=== PATIENT | male | born 1980 | race Caucasian/White ===

== ENCOUNTER → 2017-01-13 | Outpatient (CLI) | payer OTHER ==
[2017-01-13 15:50] LABS: CH 29.5; CHCM 35.4; HCT 43.6 % (39.0-53.0); HDW 2.89; HGB 14.8 gm/dL (13.0-17.5); MCH 28.4 pg (25.0-35.0); MCV 83.6 fL (80.0-100.0); Mean Platelet Volume 7.1; RBC 5.21 m/uL (4.30-5.90); RDW 14.1 % (11.5-15.5); WBC 7.3 k/uL (3.8-10.6)
[2017-01-13 15:59] LABS: ALT 60 U/L (21-72); AST 44 U/L (17-59); Alkaline Phosphatase 101 U/L (38-126); Anion Gap 8 mmol/L; Blood Urea Nitrogen 19 mg/dL (9-20); Calcium 9.3 mg/dL (8.4-10.2); Carbon Dioxide 30 mmol/L (22-30); Chloride 102 mmol/L (98-107); Glucose 106 mg/dL (74-99); Non-African American GFR(MDRD) >60 (>60 ml/min/1.73 sqM); Potassium 4.5 mmol/L (3.5-5.1); Sodium 140 mmol/L (137-145); Total Bilirubin 0.6 mg/dL (0.2-1.3); Total Protein 7.1 g/dL (6.3-8.2)
[2017-01-16 14:50] LABS: HCV Qualitative Result DETECTED (Not detected)
== END | disposition home or self-care (01) ==
LOC: LABWHC1 15:03
DX: B18.2 Chronic viral hepatitis C (principal)
CPT/HCPCS: 36415; 80053; 82105; 85027; 87522; 87902

== ENCOUNTER → 2017-03-13 | Outpatient (CLI) | payer OTHER ==
[2017-03-17 09:15] LABS: Mis test requested (Blood) Hep C RNA Geno
== END | disposition home or self-care (01) ==
LOC: LABWHC1 11:15
PROVIDERS: ATTEND Physician Assistant
DX: B18.2 Chronic viral hepatitis C (principal)
CPT/HCPCS: 36415; 87902

== ENCOUNTER → 2017-08-15 | Outpatient (CLI) | payer OTHER ==
[2017-08-15 16:51] LABS: ALT 40 U/L (21-72); AST 31 U/L (17-59); Albumin 4.1 g/dL (3.5-5.0); Alkaline Phosphatase 84 U/L (38-126); Anion Gap 12 mmol/L; Blood Urea Nitrogen 17 mg/dL (9-20); Calcium 9.3 mg/dL (8.4-10.2); Carbon Dioxide 29 mmol/L (22-30); Chloride 101 mmol/L (98-107); Glucose 103 mg/dL (74-99); Potassium 4.3 mmol/L (3.5-5.1); Sodium 142 mmol/L (137-145); Total Bilirubin 0.4 mg/dL (0.2-1.3)
[2017-08-16 16:03] LABS: Hepatits C Virus RNA DETECTED (Not detected); LOG HCV IU/mL 6.58 (<1.08)
== END | disposition home or self-care (01) ==
LOC: LABWHC1 16:11
DX: B18.2 Chronic viral hepatitis C (principal)
CPT/HCPCS: 36415; 80053; 87522

== ENCOUNTER → 2017-09-18 | Outpatient (CLI) | payer OTHER ==
[2017-09-18 12:11] LABS: Basophils # (A) 0.1 k/uL (0-0.2); Basophils % (A) 1 %; Eosinophils # (A) 0.2 k/uL (0-0.7); Eosinophils % (A) 4 %; HCT 42.1 % (39.0-53.0); HGB 14.6 gm/dL (13.0-17.5); Lymphocytes # (A) 1.5 k/uL (1.0-4.8); Lymphocytes % (A) 22 %; MCH 28.5 pg (25.0-35.0); MCHC 34.7 g/dL (31.0-37.0); MCV 82.2 fL (80.0-100.0); Mean Platelet Volume 6.7; Monocytes # (A) 0.3 k/uL (0-1.0); Monocytes % (A) 5 %; Neutrophils # (A) 4.6 k/uL (1.3-7.7); Neutrophils % (A) 68 %; Platelet Count 259 k/uL (150-450); RBC 5.12 m/uL (4.30-5.90); RDW 12.9 % (11.5-15.5); WBC 6.7 k/uL (3.8-10.6)
[2017-09-18 12:24] LABS: Prothrombin Time 10.3 sec (9.0-12.0)
== END ==
LOC: LABWHC1 11:44
PROVIDERS: ATTEND Physician Assistant
DX: B18.2 Chronic viral hepatitis C (principal)
CPT/HCPCS: 36415; 85025; 85610

== ENCOUNTER → 2017-09-26 | Outpatient (CLI) | payer OTHER | END | disposition home or self-care (01) | LOC: LABWHC1 12:37 | PROVIDERS: ATTEND Otolaryngology | DX: K11.5 Sialolithiasis (principal) | CPT/HCPCS: 36415; 82306; 82330 ==

== ENCOUNTER → 2017-09-27 | Outpatient (CLI) | payer OTHER ==
--- NOTE | 2017-09-27 09:59 | CT ---
EXAMINATION TYPE: CT soft tissue neck w con DATE OF EXAM: 09/27/2017 COMPARISON: NONE HISTORY: Patient complains of left side mandibular swelling after eating sweets. CT DLP: 802 mGycm CONTRAST: CT scan of the neck is performed with IV Contrast, patient injected with 100 mL of Isovue 300. Contrast enhanced CT of the neck was performed from the skull base through the lung apices. AIRWAY: The supraglottic, glottic, and subglottic portions of the airway appear patent and free of mass. SALIVARY GLANDS: There is fullness of the left submandibular gland relative to its right-sided counte rpart measuring 2.3 x 2.1 cm versus 2.1 x 1.7 cm. No definite intraglandular mass or surrounding infl ammatory changes appreciated. There is calculus measuring 11 x 5 mm at the floor of the mouth in the expected location of the left submandibular duct opening. No additional calculi seen with certainty. Parotid glands are symmetric and unremarkable. THYROID GLAND: No nodules or masses seen. LYMPH NODES: No adenopathy seen greater than 1cm. LUNG APICES: No nodule or mass is seen. OTHER: Vascular structures are patent. No significant degenerative change of the cervical spine. N o abscess seen. Mucosal thickening right maxillary sinus. IMPRESSION: 1. Fullness of the left submandibular gland with ductal calculus noted near the opening of [place]'s duct on the left at the floor of the mouth.
== END | disposition home or self-care (01) ==
LOC: RADCTMAIN 09:06
PROVIDERS: ATTEND Otolaryngology
DX: K11.5 Sialolithiasis (principal)
CPT/HCPCS: 70491; Q9967

== ENCOUNTER → 2018-02-23 | Outpatient (CLI) | payer OTHER ==
[2018-02-23 15:23] LABS: Basophils # (A) 0.1 k/uL (0-0.2); Basophils % (A) 1 %; Eosinophils # (A) 0.3 k/uL (0-0.7); Eosinophils % (A) 5 %; HCT 42.3 % (39.0-53.0); HGB 14.1 gm/dL (13.0-17.5); Lymphocytes # (A) 1.8 k/uL (1.0-4.8); Lymphocytes % (A) 27 %; MCH 27.9 pg (25.0-35.0); MCHC 33.3 g/dL (31.0-37.0); MCV 83.8 fL (80.0-100.0); Mean Platelet Volume 6.5; Monocytes # (A) 0.3 k/uL (0-1.0); Monocytes % (A) 4 %; Neutrophils % (A) 62 %; Platelet Count 275 k/uL (150-450); RBC 5.05 m/uL (4.30-5.90); RDW 13.2 % (11.5-15.5); WBC 6.5 k/uL (3.8-10.6)
[2018-02-23 21:31] LABS: Albumin 4.3 g/dL (3.80-4.90); Albumin/Globulin Ratio 1.95 (1.20-2.10); Bilirubin, Conjugated 0.2 mg/dL (0.20-0.40); Bilirubin,Unconjugated 0.4 mg/dL; Globulin 2.2 g/dL (2.1-3.7); Total Bilirubin 0.6 mg/dL (0.3-1.2); Total Protein 6.5 g/dL (6.2-8.2)
[2018-02-26 14:34] LABS: Hepatits C Virus RNA DETECTED (Not detected); LOG HCV IU/mL 6.69 (<1.08)
== END ==
LOC: LABWHC1 14:23
PROVIDERS: ATTEND Physician Assistant
DX: B18.2 Chronic viral hepatitis C (principal)
CPT/HCPCS: 36415; 80076; 82172; 82247; 82977; 83010; 83883; 84460; 85025; 85610; 87522

== ENCOUNTER → 2018-06-14 | Outpatient (CLI) | payer MEDICAID ==
[2018-06-14 12:59] LABS: Basophils # (A) 0.1 k/uL (0-0.2); Basophils % (A) 1 %; Eosinophils # (A) 0.3 k/uL (0-0.7); Eosinophils % (A) 5 %; HCT 41.4 % (39.0-53.0); HGB 13.8 gm/dL (13.0-17.5); Lymphocytes # (A) 1.6 k/uL (1.0-4.8); Lymphocytes % (A) 26 %; MCH 28.3 pg (25.0-35.0); MCHC 33.4 g/dL (31.0-37.0); MCV 84.7 fL (80.0-100.0); Mean Platelet Volume 6.2; Monocytes # (A) 0.3 k/uL (0-1.0); Monocytes % (A) 5 %; Neutrophils # (A) 3.8 k/uL (1.3-7.7); Neutrophils % (A) 61 %; Platelet Count 246 k/uL (150-450); RBC 4.88 m/uL (4.30-5.90); RDW 13.4 % (11.5-15.5); WBC 6.2 k/uL (3.8-10.6)
[2018-06-14 13:03] LABS: Prothrombin Time 10.3 sec (9.0-12.0)
[2018-06-14 19:36] LABS: Albumin/Globulin Ratio 1.74 (1.60-3.17); Bilirubin, Conjugated 0.2 mg/dL (0.20-0.40); Bilirubin,Unconjugated 0.2 mg/dL; Globulin 2.3 g/dL (1.6-3.3); Total Bilirubin 0.4 mg/dL (0.2-1.2); Total Protein 6.3 g/dL (6.2-8.2)
[2018-06-15 14:36] LABS: Hepatits C Virus RNA DETECTED (Not detected); LOG HCV IU/mL 6.51 (<1.08)
== END | disposition home or self-care (01) ==
LOC: LABWHC1 11:03
PROVIDERS: ATTEND Physician Assistant
DX: B18.2 Chronic viral hepatitis C (principal)
CPT/HCPCS: 36415; 80076; 85025; 85610; 87522

== ENCOUNTER 2018-06-20 15:41 | Inpatient (IN) | payer MEDICAID ==
--- NOTE | 2018-06-20 16:04 | ED ---
General Adult HPI <Masood Car - Last Filed: 06/20/18 18:41> - General Source: patient, RN notes reviewed Mode of arrival: ambulatory Limitations: no limitations <Isabel Fregoso - Last Filed: 06/20/18 19:19> - General Chief complaint: Recheck/Abnormal Lab/Rx Stated complaint: Poss Cellulitis on Abdomen - History of Present Illness Initial comments: Patient is a 37-year-old male with history of recurrent cellulitis and hepatitis C who presents to the emergency department with complaint of cellulitis on his abdomen since yesterday. He states he has had a 5 episodes over the past couple months. He states he has been taking Bactrim for the past couple weeks. Patient denies any recent fever, chills, shortness of breath, chest pain, back pain, nausea or vomiting, numbness or tingling, headaches or visual changes, or any other complaints. (Isabel Fregoso) - Related Data Home Medications Medication Instructions Recorded Confirmed Buprenorphine HCl/Naloxone HCl 1 mg SL TID 05/22/15 01/16/16 [Suboxone 8 mg-2 mg Sl Film] Lisinopril [Zestril] 10 mg PO DAILY 01/16/16 01/16/16 Previous Rx's Medication Instructions Recorded Cephalexin [Keflex] 500 mg PO Q6HR #28 cap 01/16/16 Sulfamethox-Tmp 800-160Mg [Bactrim 2 each PO Q12HR #28 tab 01/16/16 Ds] Allergies Allergy/AdvReac Type Severity Reaction Status Date / Time No Known Allergies Allergy Verified 06/20/18 15:42 Review of Systems ROS Other: All systems not noted in ROS Statement are negative. <Masood Car - Last Filed: 06/20/18 18:41> ROS Other: All systems not noted in ROS Statement are negative. <Isaebl Fregoso - Last Filed: 06/20/18 19:19> ROS Statement: Those systems with pertinent positive or pertinent negative responses have been documented in the HPI. Past Medical History Additional Past Medical History / Comment(s): hep c, History of Any Multi-Drug Resistant Organisms: None Reported Past Surgical History: Adenoidectomy, Hernia Repair, Tonsillectomy Past Psychological History: No Psychological Hx Reported Smoking Status: Current some day smoker Past Alcohol Use History: None Reported Past Drug Use History: None Reported, Heroin, Opiates <FregosoIsabel E - Last Filed: 06/20/18 19:19> General Exam Limitations: no limitations General appearance: alert, in no apparent distress Head exam: Present: atraumatic, normocephalic Eye exam: Present: normal appearance Respiratory exam: Present: normal lung sounds bilaterally. Absent: wheezes, rales, rhonchi Cardiovascular Exam: Present: regular rate, normal rhythm GI/Abdominal exam: Present: other (Erythematous patch over right side of abdomen.) Neurological exam: Present: alert, oriented X3 <Isabel Fregoso E - Last Filed: 06/20/18 19:19> Vital Signs 06/20/18 06/20/18 15:42 17:33 Temperature 98.7 F Pulse Rate 98 79 Respiratory 18 18 Rate Blood Pressure 135/88 132/80 O2 Sat by Pulse 97 97 Oximetry Medical Decision Making - Lab Data Result diagrams: 06/20/18 16:12 06/20/18 16:12 <Masood Car - Last Filed: 06/20/18 18:41> - Lab Data Result diagrams: 06/20/18 16:12 06/20/18 16:12 <Isabel Fregoso E - Last Filed: 06/20/18 19:19> - Medical Decision Making Medical decision making; a 37-year-old male here with 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 Patient reports that he has on-again off-again needed take Bactrim for 2-3 weeks at a time. This time is not responding. Denies any fever or chills. But his usual antibiotic therapy is not working. The patient's past medical problems as noted on the chart include having had problems with opiates in the past denies having had any such issues in the past 10 years. Has a history of hepatitis C and states he was recently told he'll be starting treatment for hep C. While in emergency room the patient was examined. Evidence of a tender red hot skin typical of cellulitis noted in the lower half of the port wine stain. I discussed the case with his attending Dr. Mcgovern. Patient be admitted to his service started on vancomycin. Dr. Car ( Masood Car) - Lab Data Lab Results 06/20/18 06/20/1806/20/19 Range/Units 16:12 16:12 16:12 WBC 9.1 (3.8-10.6) k/uL RBC 5.00 (4.30-5.90) m/uL Hgb 14.5 (13.0-17.5) gm/dL Hct 41.9 (39.0-53.0) % MCV 83.6 (80.0-100.0) fL MCH 28.9 (25.0-35.0) pg MCHC 34.6 (31.0-37.0) g/dL RDW 13.5 (11.5-15.5) % Plt Count 300 (150-450) k/uL Neutrophils % 70 % Lymphocytes % 21 % Monocytes % 5 % Eosinophils % 3 % Basophils % 1 % Neutrophils # 6.3 (1.3-7.7) k/uL Lymphocytes # 1.9 (1.0-4.8) k/uL Monocytes # 0.4 (0-1.0) k/uL Eosinophils # 0.3 (0-0.7) k/uL Basophils # 0.1 (0-0.2) k/uL Sodium 140 (137-145) mmol/L Potassium 4.0 (3.5-5.1) mmol/L Chloride 103 (98-107) mmol/L Carbon Dioxide 27 (22-30) mmol/L Anion Gap 10 mmol/L BUN 13 (9-20) mg/dL Creatinine 0.80 (0.66-1.25) mg/dL Est GFR (CKD-EPI)AfAm >90 (>60 ml/min/1.73 sqM) Est GFR (CKD-EPI)NonAf >90 (>60 ml/min/1.73 sqM) Glucose 94 (74-99) mg/dL Plasma Lactic Acid [place] 1.4 (0.7-2.0) mmol/L Calcium 9.1 (8.4-10.2) mg/dL Total Bilirubin 0.7 (0.2-1.3) mg/dL AST 48 (17-59) U/L ALT 79 H (21-72) U/L Alkaline Phosphatase 105 (38-126) U/L Total Protein 7.4 (6.3-8.2) g/dL Albumin 4.2 (3.5-5.0) g/dL Disposition <Masood Car - Last Filed: 06/20/18 18:41> Is patient prescribed a controlled substance at d/c from ED?: No <Isabel Fregoso - Last Filed: 06/20/18 19:19> Clinical Impression: Cellulitis Disposition: ADMITTED IP TO THIS HOSP Referrals: Darian Mcgovern DO [Primary Care Provider] - 1-2 days
[2018-06-20] MEDS: SODIUM CHLORIDE 0.9% 1,000 ML IV SCH (16:27)
[2018-06-20 16:30] LABS: Basophils # (A) 0.1 k/uL (0-0.2); Basophils % (A) 1 %; Eosinophils # (A) 0.3 k/uL (0-0.7); Eosinophils % (A) 3 %; HCT 41.9 % (39.0-53.0); HGB 14.5 gm/dL (13.0-17.5); Lymphocytes # (A) 1.9 k/uL (1.0-4.8); Lymphocytes % (A) 21 %; MCH 28.9 pg (25.0-35.0); MCHC 34.6 g/dL (31.0-37.0); MCV 83.6 fL (80.0-100.0); Mean Platelet Volume 5.8; Monocytes # (A) 0.4 k/uL (0-1.0); Monocytes % (A) 5 %; Neutrophils # (A) 6.3 k/uL (1.3-7.7); Neutrophils % (A) 70 %; Platelet Count 300 k/uL (150-450); RDW 13.5 % (11.5-15.5); WBC 9.1 k/uL (3.8-10.6)
[2018-06-20 16:46] LABS: AST 48 U/L (17-59); Albumin 4.2 g/dL (3.5-5.0); Alkaline Phosphatase 105 U/L (38-126); Anion Gap 10 mmol/L; Blood Urea Nitrogen 13 mg/dL (9-20); Calcium 9.1 mg/dL (8.4-10.2); Carbon Dioxide 27 mmol/L (22-30); Chloride 103 mmol/L (98-107); Glucose 94 mg/dL (74-99); Sodium 140 mmol/L (137-145); Total Bilirubin 0.7 mg/dL (0.2-1.3); Total Protein 7.4 g/dL (6.3-8.2)
[2018-06-20 16:55] LABS: ALT 79 U/L (21-72)
[2018-06-20] MEDS ORDERED: VANCOMYCIN IV PER PHARMACY 1 EACH MISC MISCELLANE PRN (18:27)
[2018-06-20] MEDS ORDERED: VANCOMYCIN 2,000 MG in SODIUM CHLORIDE 0.9% 500 ML 500 ML IVPB STA (18:42)
[2018-06-20] MEDS ORDERED: NALOXONE 0.4 MG/ML 1 ML VIAL IV PRN (19:19)
[2018-06-20 19:49] LABS: Appearance,Urine Clear (Clear); Bilirubin,Urine Negative (Negative); Blood,Urine Negative (Negative); Color,Urine Yellow; Glucose,Urine (UA) Negative (Negative); Ketones,Urine Negative (Negative); Leukocyte Esterase,Urine Negative (Negative); Nitrite,Urine Negative (Negative); Protein,Urine Negative (Negative); Specific Gravity,Urine 1.021 (1.001-1.035); Urobilinogen,Urine <2.0 mg/dL (<2.0)
[2018-06-20] MEDS ORDERED: FLUoxetine HCL 10 MG CAP PO SCH (21:30)
[2018-06-20] MEDS: FLUoxetine HCL 20 MG CAP PO SCH (22:09)
[2018-06-20] MEDS: NICOTINE 21MG/24HR PATCH TRANSDERM SCH (22:09)
[2018-06-20] MEDS: LOSARTAN 50 MG TAB PO SCH (22:37)
[2018-06-21] MEDS: VANCOMYCIN 2,000 MG in SODIUM CHLORIDE 0.9% 500 ML 500 ML IVPB SCH ×3 (05:56→21:16)
[2018-06-21] MEDS: SODIUM CHLORIDE 0.9% 1,000 ML IV SCH ×3 (05:56→21:17)
[2018-06-21] MEDS ORDERED: LOSARTAN 50 MG TAB PO SCH (09:00)
[2018-06-21 09:20] LABS: Basophils % (A) 1 %; Eosinophils # (A) 0.4 k/uL (0-0.7); Eosinophils % (A) 5 %; HGB 12.7 gm/dL (13.0-17.5); Lymphocytes # (A) 1.6 k/uL (1.0-4.8); Lymphocytes % (A) 22 %; MCH 28.1 pg (25.0-35.0); MCHC 32.5 g/dL (31.0-37.0); MCV 86.6 fL (80.0-100.0); Mean Platelet Volume 6.2; Monocytes # (A) 0.3 k/uL (0-1.0); Monocytes % (A) 5 %; Neutrophils # (A) 4.7 k/uL (1.3-7.7); Neutrophils % (A) 66 %; Platelet Count 217 k/uL (150-450); RDW 13.7 % (11.5-15.5); WBC 7.1 k/uL (3.8-10.6)
[2018-06-21 09:37] LABS: ALT 68 U/L (21-72); AST 40 U/L (17-59); Albumin 3.3 g/dL (3.5-5.0); Alkaline Phosphatase 85 U/L (38-126); Anion Gap 5 mmol/L; Blood Urea Nitrogen 13 mg/dL (9-20); Calcium 8.2 mg/dL (8.4-10.2); Carbon Dioxide 29 mmol/L (22-30); Chloride 105 mmol/L (98-107); Glucose 149 mg/dL (74-99); Potassium 4.2 mmol/L (3.5-5.1); Sodium 139 mmol/L (137-145); Total Bilirubin 0.6 mg/dL (0.2-1.3); Total Protein 6.1 g/dL (6.3-8.2)
[2018-06-21] MEDS: FLUoxetine HCL 20 MG CAP PO SCH (20:08)
[2018-06-21] MEDS: LOSARTAN 50 MG TAB PO SCH (20:08)
[2018-06-21] MEDS: NICOTINE 21MG/24HR PATCH TRANSDERM SCH (20:09)
--- NOTE | 2018-06-21 22:21 | P.HPIM ---
History of Present Illness H&P Date: 06/21/18 Patient is a 37-year-old male with history of recurrent cellulitis and hepatitis C who presents to the emergency department with complaint of cellulitis on his abdomen since yesterday. He states he has had a 5 episodes over the past couple months. He states he has been taking Bactrim for the past couple weeks. Patient denies any recent fever, chills, shortness of breath, chest pain, back pain, nausea or vomiting, numbness or tingling, headaches or visual changes, or any other complaints. Patient has a port winestain rash on his entire right sided chest and abdomen. Review of Systems GENERAL: Patient denies fever. Denies chills. EYES: Denies blurred vision. Denies vision changes. Denies eye pain. EARS, NOSE, MOUTH, & THROAT: Denies headache. Denies sore throat. Denies ear pain. RESPIRATORY: Denies cough. Denies shortness of breath. Denies sputum production. Denies hemoptysis. CARDIOVASCULAR: Denies chest pain or pressure. Denies palpitations. Denies arrhythmias. GASTROINTESTINAL: Denies abdominal pain. Denies diarrhea. Denies constipation. Denies nausea. Denies vomiting. Denies heartburn. Denies blood in the stool. GENITOURINARY: Denies urinary frequency. Denies burning. Denies dysuria. Denies cloudy urine. Denies blood in the urine. MUSCULOSKELETAL: Denies myalgias. Denies joint swelling. Denies decreased range of motion beyond patients baseline. INTEGUMENTARY: port wine stain rash on his entire right upper chest and abdomen with local area of cellulitis with erythema and edema noted.. PSYCHIATRIC: Denies suicidal or homicial ideations.previous problems with opioid dependency currently on Suboxone from specialist ENDOCRINE: admits to weight gain. Denies polydipsia. Denies polyuria. HEMATOLOGIC: Denies bleeding disorders. Past Medical History Additional Past Medical History / Comment(s): hep c, history of etoh and drug use, clean for 8 years History of Any Multi-Drug Resistant Organisms: None Reported Past Surgical History: Adenoidectomy, Hernia Repair, Tonsillectomy Past Anesthesia/Blood Transfusion Reactions: No Reported Reaction Past Psychological History: No Psychological Hx Reported Smoking Status: Current some day smoker Past Alcohol Use History: None Reported Past Drug Use History: None Reported, Heroin, Opiates - Past Family History Father Family Medical History: Hypertension Additional Family Medical History / Comment(s): skin CA Medications and Allergies Home Medications Medication Instructions Recorded Confirmed Type Buprenorphine HCl/Naloxone HCl 1 mg SL QID 05/22/15 06/20/18 History [Suboxone 8 mg-2 mg Sl Film] Cholecalciferol [Vitamin D3] 1,000 unit PO HS 06/20/18 06/20/18 History Dextroamphetamine/Amphetamine 30 mg PO BID 06/20/18 06/20/18 History [Adderall] FLUoxetine HCL [PROzac] 20 mg PO HS 06/20/18 06/20/18 History Losartan Potassium 50 mg PO HS 06/20/18 06/20/18 History Milk Thistle 150 mg PO HS 06/20/18 06/20/18 History Sulfamethoxazole/Trimethoprim 1 tab PO Q12H 06/20/18 06/20/18 History [Bactrim DS 800-160 mg] Allergies Allergy/AdvReac Type Severity Reaction Status Date / Time No Known Allergies Allergy Verified 06/20/18 21:58 Physical Exam Osteopathic Statement: *. No significant issues noted on an osteopathic structural exam other than those noted in the History and Physical/Consult. Vitals: Vital Signs Temp Pulse Resp BP Pulse Ox 06/21/18 15:00 97.4 F L 69 16 137/74 96 06/21/18 07:00 98 F 67 20 146/76 98 Intake and Output 06/21/18 06/21/18 06/21/18 06:59 14:59 22:59 Intake Total 100 Balance 100 Intake: Oral 100 Other: # Voids 1 3 GENERAL: This is a -37 year-old male in no apparent distress at the time of examination. Pleasant and cooperative. HEENT: Head is atraumatic, normocephalic. Pupils are equal, round, and reactive to light. Sclerae anicteric. Conjunctivae are clear. Mucus membranes of the mouth are moist. Neck is supple. RESPIRATORY: Clear to auscultation. No wheezes, rales, or rhonchi. No use of accessory muscles. Patient maintaining oxygen saturation greater than 92%. No chest wall tenderness is noted on palpation or with deep breathing. CARDIOVASCULAR: Regular rate and rhythm. S1 and S2 noted. No systolic or diastolic murmur auscultated. No JVD noted. No S3 or S4 noted. GASTROINTESTINAL: No distention noted. Abdomen soft and round. Normal active bowel sounds auscultated x 4 quadrants. No pain or tenderness noted upon palpation. INTEGUMENTARY: No cyanosis. No jaundice. positive rashes noted. ith area cellulitis and right lower abdo.. EXTREMITIES: 2+ peripheral pulses. No evidence of peripheral edema. No calf tenderness noted. NEUROLOGIC: Cranial nerves II-XII intact. PSYCHIATRIC: Awake, alert, and oriented X 3. Appropriate affect. Intact judgement and insight. Results CBC & Chem 7: 06/21/18 08:56 06/21/18 08:56 Labs: Abnormal Lab Results - Last 24 Hours (Table) 06/21/18 06/21/18 Range/Units 08:56 08:56 Hgb 12.7 L (13.0-17.5) gm/dL Glucose 149 H (74-99) mg/dL Calcium 8.2 L (8.4-10.2) mg/dL Total Protein 6.1 L (6.3-8.2) g/dL Albumin 3.3 L (3.5-5.0) g/dL Microbiology - Last 24 Hours (Table) 06/20/18 16:12 Blood Culture - Preliminary Blood No Growth after 24 hours Thrombosis Risk Factor Assmnt - Choose All That Apply Any of the Below Risk Factors Present?: Yes Each Factor Represents 1 point: Obesity (BMI >25) Other Risk Factors: No Other congenital or acquired thrombophilia - If yes, enter type in comment: No Thrombosis Risk Factor Assessment Total Risk Factor Score: 1 Thrombosis Risk Factor Assessment Level: Low Risk Assessment and Plan Assessment: ASSESSMENT. History of hepatitis C. History of senior care opiate addiction currently on Suboxone from specialists. Morbid obesity. 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 Acute cellulitis of the entire lower abdomen region. (1) Cellulitis Current Visit: Yes Status: Acute Code(s): L03.90 - CELLULITIS, UNSPECIFIED SNOMED Code(s): 183504199 Plan: continue IV antibiotics. If cellulitis responds we'll continue to observe encouraged weight loss and maybe an abdominal binder to help with edema.
[2018-06-22] MEDS ORDERED: VANCOMYCIN TROUGH DUE 1 EACH MISC MISCELLANE ONE (05:00)
[2018-06-22 06:12] LABS: Anion Gap 6 mmol/L; Blood Urea Nitrogen 16 mg/dL (9-20); Calcium 8.5 mg/dL (8.4-10.2); Carbon Dioxide 28 mmol/L (22-30); Chloride 106 mmol/L (98-107); Glucose 87 mg/dL (74-99); Potassium 4.5 mmol/L (3.5-5.1); Sodium 140 mmol/L (137-145)
[2018-06-22] MEDS: ACETAMINOPHEN TAB 325 MG TAB PO PRN (06:43)
[2018-06-22] MEDS: VANCOMYCIN 2,000 MG in SODIUM CHLORIDE 0.9% 500 ML 500 ML IVPB SCH ×3 (06:43→22:35)
[2018-06-22] MEDS: SODIUM CHLORIDE 0.9% 1,000 ML IV SCH ×2 (07:52→17:30)
[2018-06-22 09:21] LABS: HCT 40.2 % (39.0-53.0); HGB 13.1 gm/dL (13.0-17.5); MCHC 32.6 g/dL (31.0-37.0); MCV 88.7 fL (80.0-100.0); Mean Platelet Volume 7.2; Platelet Count 217 k/uL (150-450); RBC 4.53 m/uL (4.30-5.90); RDW 13.8 % (11.5-15.5); WBC 6.1 k/uL (3.8-10.6)
[2018-06-22] MEDS: FLUoxetine HCL 20 MG CAP PO SCH (20:16)
[2018-06-22] MEDS: LOSARTAN 50 MG TAB PO SCH (20:16)
[2018-06-22] MEDS: NICOTINE 21MG/24HR PATCH TRANSDERM SCH (20:16)
--- NOTE | 2018-06-22 20:56 | P.PN ---
Subjective Progress Note Date: 06/22/18 Patient is a 37-year-old male with history of recurrent cellulitis and hepatitis C who presents to the emergency department with complaint of cellulitis on his abdomen since yesterday. He states he has had a 5 episodes over the past couple months. He states he has been taking Bactrim for the past couple weeks. Patient denies any recent fever,he feels a little today and he says hiscellulitis has improved somewhat but is still there. Objective - Vital Signs Vital signs: Vital Signs Temp 97.4 F L 06/22/18 15:00 Pulse 56 L 06/22/18 15:00 Resp 16 06/22/18 15:00 BP 131/80 06/22/18 15:00 Pulse Ox 97 06/22/18 15:00 Intake & Output 06/22/18 06/22/18 06/23/18 06:59 18:59 06:59 Intake Total 300 400 Balance 300 400 Intake: Oral 300 400 Other: # Voids 1 3 - Exam GENERAL: This is a -37 year-old male in no apparent distress at the time of examination. Pleasant and cooperative. HEENT: Head is atraumatic, normocephalic. Pupils are equal, round, and reactive to light. Sclerae anicteric. Conjunctivae are clear. Mucus membranes of the mouth are moist. Neck is supple. RESPIRATORY: Clear to auscultation. No wheezes, rales, or rhonchi. No use of accessory muscles. Patient maintaining oxygen saturation greater than 92%. No chest wall tenderness is noted on palpation or with deep breathing. CARDIOVASCULAR: Regular rate and rhythm. S1 and S2 noted. No systolic or diastolic murmur auscultated. No JVD noted. No S3 or S4 noted. GASTROINTESTINAL: No distention noted. Abdomen soft and round. Normal active bowel sounds auscultated x 4 quadrants. No pain or tenderness noted upon palpation. INTEGUMENTARY: No cyanosis. No jaundice. positive rashes noted. with area cellulitis and right lower abdomin improving. EXTREMITIES: 2+ peripheral pulses. No evidence of peripheral edema. No calf tenderness noted. NEUROLOGIC: Cranial nerves II-XII intact. PSYCHIATRIC: Awake, alert, and oriented X 3. Appropriate affect. Intact judgement and insight. - Labs CBC & Chem 7: 06/22/18 05:34 06/22/18 05:34 Labs: Microbiology - Last 24 Hours (Table) 06/20/18 16:12 Blood Culture - Preliminary Blood No Growth after 48 hours Assessment and Plan Assessment: ASSESSMENT. History of hepatitis C. 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 Morbid obesity. 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 Acute cellulitis of the entire lower abdomen region.improving with vancomycin (1) Cellulitis Current Visit: Yes Status: Acute Code(s): L03.90 - CELLULITIS, UNSPECIFIED SNOMED Code(s): 124155407 Plan: continue IV antibiotics. 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 [facility] hospitalists group is covering for me this weekend.
[2018-06-23] MEDS: ACETAMINOPHEN TAB 325 MG TAB PO PRN (05:57)
[2018-06-23] MEDS: SODIUM CHLORIDE 0.9% 1,000 ML IV SCH ×2 (06:00→14:26)
[2018-06-23] MEDS: VANCOMYCIN 2,000 MG in SODIUM CHLORIDE 0.9% 500 ML 500 ML IVPB SCH ×2 (06:38→13:20)
[2018-06-23 09:05] LABS: Anion Gap 9 mmol/L; Blood Urea Nitrogen 14 mg/dL (9-20); Calcium 8.8 mg/dL (8.4-10.2); Carbon Dioxide 26 mmol/L (22-30); Chloride 105 mmol/L (98-107); Glucose 173 mg/dL (74-99); Potassium 4.1 mmol/L (3.5-5.1); Sodium 140 mmol/L (137-145)
--- NOTE | 2018-06-23 15:29 | P.PN ---
Subjective Progress Note Date: 06/23/18 Principal diagnosis: Extensive recurrent abdominal wall cellulitis 37-year-old male with history of recurrent cellulitis and hepatitis C who presents to the emergency department with complaint of cellulitis on his abdomen since yesterday. He states he has had a 5 episodes over the past couple months. He states he has been taking Bactrim for the past couple weeks. Patient denies any recent fever,he feels a little today and he says his cellulitis has improved somewhat but is still there. 06/23/2018 Patient seen and evaluated in follow-up in room at bedside; patient voices concern about frequent recurrence of cellulitis recently; claims past few episodes caused flareup even while on antibiotic prophylaxis with Bactrim; we will consult ID for further recommendations Objective - Vital Signs Vital signs: Vital Signs Temp 97.7 F 06/23/18 07:00 Pulse 57 L 06/23/18 07:00 Resp 18 06/23/18 07:00 BP 127/82 06/23/18 07:00 Pulse Ox 96 06/23/18 07:00 Intake & Output 06/22/18 06/23/18 06/23/18 18:59 06:59 18:59 Intake Total 400 1000 Balance 400 1000 Intake: Oral 400 1000 Other: # Voids 3 2 # Bowel Movements 0 - Exam HEENT: Head is atraumatic, normocephalic. Pupils are equal, round, and reactive to light. Sclerae anicteric. Conjunctivae are clear. Mucus membranes of the mouth are moist. Neck is supple. RESPIRATORY: Clear to auscultation. No wheezes, rales, or rhonchi. No use of accessory muscles. Patient maintaining oxygen saturation greater than 92%. No chest wall tenderness is noted on palpation or with deep breathing. CARDIOVASCULAR: Regular rate and rhythm. S1 and S2 noted. No systolic or diastolic murmur auscultated. No JVD noted. No S3 or S4 noted. GASTROINTESTINAL: No distention noted. Abdomen soft and round. Normal active bowel sounds auscultated x 4 quadrants. No pain or tenderness noted upon palpation. INTEGUMENTARY: No cyanosis. No jaundice. positive rashes noted. with area cellulitis and right lower abdomin improving. EXTREMITIES: 2+ peripheral pulses. No evidence of peripheral edema. No calf tenderness noted. NEUROLOGIC: Cranial nerves II-XII intact. PSYCHIATRIC: Awake, alert, and oriented X 3. Appropriate affect. Intact judgement and insight. - Labs CBC & Chem 7: 06/22/18 05:34 06/23/18 08:18 Labs: Abnormal Lab Results - Last 24 Hours (Table) 06/23/18 Range/Units 08:18 Creatinine 0.63 L (0.66-1.25) mg/dL Glucose 173 H (74-99) mg/dL Microbiology - Last 24 Hours (Table) 06/20/18 16:12 Blood Culture - Preliminary Blood No Growth after 48 hours Assessment and Plan Assessment: 1. Acute extensive cellulitis of abdominal wall - Patient is currently on IV vancomycin with pharmacy dosing service - We will continue current vancomycin dosage and possibly switch to oral antibiotics in next 24 hours - Consult ID for recurrent cellulitis per patient request 2. History of hepatitis C; patient relates he is scheduled to follow-up with [facility] D Paulino for treatment 3. Morbid obesity; patient seems motivated to lose a 4. History of long-term opiate use - Patient currently uses Suboxone for chronic pain 5. Hypertension ; Cozaar 50 mg daily 6. Chronic tobacco use; nicotine patch 7. DVT prophylaxis; SCDs CODE STATUS; full code
[2018-06-23] MEDS: LOSARTAN 50 MG TAB PO SCH (21:48)
[2018-06-23] MEDS: FLUoxetine HCL 20 MG CAP PO SCH (21:48)
[2018-06-23] MEDS: NICOTINE 21MG/24HR PATCH TRANSDERM SCH (21:48)
[2018-06-24] MEDS: VANCOMYCIN 2,000 MG in SODIUM CHLORIDE 0.9% 500 ML 500 ML IVPB SCH ×2 (00:10→06:28)
[2018-06-24] MEDS: SODIUM CHLORIDE 0.9% 1,000 ML IV SCH ×2 (00:15→11:08)
[2018-06-24 00:49] VITALS: RESP 16
[2018-06-24] MEDS: ACETAMINOPHEN TAB 325 MG TAB PO PRN (05:09)
--- NOTE | 2018-06-24 05:41 | CONS ---
CONSULTATION DATE OF SERVICE: 06/23/2018. REASON FOR CONSULTATION: Recurrent abdominal wall cellulitis. HISTORY OF PRESENT ILLNESS: The patient is a 37-year-old male who presented to the ER at [facility] on 06/20/2018 with chief complaints of a right-sided abdominal swelling, redness and pain. The patient said it had been going on for more than a week and apparently the patient had a previous episode that did respond to the oral Bactrim the patient has been taking. However, noticed to have no improvement that subsequently brought the patient to the hospital for further evaluation of the same. The patient did have some dull aching pain to the right side abdominal wall where the patient did have a erythematous rash, intensity to 3 to 4 out of 10 and no radiation. Since the patient has been admitted to the hospital, no fever has been recorded. The patient did not have any elevated white count. Patient UA has been negative. The patient has been treated with vancomycin. His blood culture has been negative. Infectious disease was consulted for further recommendations, especially with concern for his recurrent episodes of cellulitis. REVIEW OF SYSTEMS: Positive points have been mentioned in HPI. The rest of the system has been negative. PAST MEDICAL HISTORY: Chronic hepatitis C, recurrent abdominal wall cellulitis. PAST SURGICAL HISTORY: Adenoidectomy, hernia repair and tonsillectomy. SOCIAL HISTORY: Current everyday smoker. Denies any drinking or drug use. FAMILY HISTORY: Father history of hypertension and skin cancer. ALLERGIES: No known drug allergies. MEDICATION: Currently include the patient is on Tylenol, Prozac, Cozaar, Narcan, nicotine patch, Suboxone, vancomycin q.8 hours. PHYSICAL EXAMINATION: Blood pressure is 136/70 with a pulse of with temperature 98.1. He is 97% on room air. General description is a middle-aged male up in the room in no distress. HEENT: Shows no pallor or scleral icterus. Oral mucosal membranes are dry. No pharyngeal erythema or thrush. Neck trachea central. No thyromegaly. LUNGS: Unlabored breathing. Clear to auscultation anteriorly. No wheeze or crackles. Heart S1, S2. Regular rate and rhythm. ABDOMEN: Soft. Right side abdominal wall did have a rash with no significant redness, not significantly red or warm. No blister formation. No induration or fluctuation. EXTREMITIES: No edema of the feet. Skin examination: No rash or mass palpable. Neurological: Patient is awake, alert, oriented times three. Mood and affect normal. LABS: BUN 14, creatinine 0.63, hemoglobin 13, white count 6.2. Blood culture has been negative. DIAGNOSTIC IMPRESSION AND PLAN: Patient with abdominal wall rash which apparently has been recurrent and previously responded to the Bactrim DS but at this time, this patient who does have chronic hepatitis C and could be more likely immunological rash rather than bacterial cellulitis as we are lacking any fever and elevated white count with this extensive rash. PLAN: 1. The patient will benefit from evaluation by Dermatology diagnosis of this rash which I clinically doubt is cellulitis. 2. Current antibiotic vancomycin that can be transitioned to oral doxycycline on discharge. 3. We will follow up on clinical condition to further adjust medication if needed. Thank you for this consultation. We will follow this patient along with you. MMODL / IJN: [id number] /
[2018-06-24 07:45] LABS: Basophils # (A) 0.1 k/uL (0-0.2); Basophils % (A) 1 %; Eosinophils # (A) 0.4 k/uL (0-0.7); Eosinophils % (A) 6 %; HCT 39.6 % (39.0-53.0); HGB 13.4 gm/dL (13.0-17.5); Lymphocytes # (A) 1.4 k/uL (1.0-4.8); Lymphocytes % (A) 22 %; MCH 28.7 pg (25.0-35.0); MCHC 33.8 g/dL (31.0-37.0); MCV 84.9 fL (80.0-100.0); Mean Platelet Volume 5.9; Monocytes # (A) 0.4 k/uL (0-1.0); Monocytes % (A) 5 %; Neutrophils # (A) 4.2 k/uL (1.3-7.7); Neutrophils % (A) 64 %; Platelet Count 240 k/uL (150-450); RBC 4.67 m/uL (4.30-5.90); RDW 13.5 % (11.5-15.5); WBC 6.5 k/uL (3.8-10.6)
[2018-06-24 07:53] LABS: Anion Gap 6 mmol/L; Blood Urea Nitrogen 13 mg/dL (9-20); Calcium 8.7 mg/dL (8.4-10.2); Carbon Dioxide 32 mmol/L (22-30); Chloride 102 mmol/L (98-107); Glucose 94 mg/dL (74-99); Potassium 4.4 mmol/L (3.5-5.1); Sodium 140 mmol/L (137-145)
[2018-06-24 08:54] VITALS: BP 130/84; PULSE 59; TEMP 97.6
--- NOTE | 2018-06-26 23:29 | P.DS ---
Providers Date of admission: 06/20/18 19:33 Expected date of discharge: 06/24/18 Attending physician: Darian Mcgovern Consults: 06/23/18 15:29 Consult Physician Routine Consulting Provider: Alexy Navarro Consult Reason/Comments: Recurrent abdominal wall cellulitis Do you want consulting provider notified?: Yes Primary care physician: Darian Mcgovern [facility] Course: 37-year-old male with history of recurrent cellulitis and hepatitis C who presents to the emergency department with complaint of cellulitis on his abdomen since yesterday. He states he has had a 5 episodes over the past couple months. He states he has been taking Bactrim for the past couple weeks. Patient denies any recent fever,he feels a little today and he says his cellulitis has improved somewhat but is still there. 06/23/2018 Patient seen and evaluated in follow-up in room at bedside; patient voices concern about frequent recurrence of cellulitis recently; claims past few episodes caused flareup even while on antibiotic prophylaxis with Bactrim; we will consult ID for further recommendations ID recommended transitioning antibiotic therapy to oral doxycycline to complete therapy and Derm evaluation for abdominal rash Patient Condition at Discharge: Good Plan - Discharge Summary Discharge Rx Participant: No New Discharge Prescriptions: New Doxycycline [Vibramycin] 100 mg PO BID 7 Days #14 capsule Continue Buprenorphine HCl/Naloxone HCl [Suboxone 8 mg-2 mg Sl Film] 1 mg SL QID Losartan Potassium 50 mg PO HS FLUoxetine HCL [PROzac] 20 mg PO HS Milk Thistle 150 mg PO HS Dextroamphetamine/Amphetamine [Adderall] 30 mg PO BID Cholecalciferol [Vitamin D3] 1,000 unit PO HS Sulfamethoxazole/Trimethoprim [Bactrim DS 800-160 mg] 1 tab PO Q12H Discharge Medication List Buprenorphine HCl/Naloxone HCl [Suboxone 8 mg-2 mg Sl Film] 1 mg SL QID [History] Cholecalciferol [Vitamin D3] 1,000 unit PO HS 06/20/18 [History] Dextroamphetamine/Amphetamine [Adderall] 30 mg PO BID 06/20/18 [History] FLUoxetine HCL [PROzac] 20 mg PO HS 06/20/18 [History] Losartan Potassium 50 mg PO HS 06/20/18 [History] Milk Thistle 150 mg PO HS 06/20/18 [History] Sulfamethoxazole/Trimethoprim [Bactrim DS 800-160 mg] 1 tab PO Q12H 06/20/18 [ History] Doxycycline [Vibramycin] 100 mg PO BID 7 Days #14 capsule 06/24/18 [Rx] Follow up Appointment(s)/Referral(s): Darian Mcgovern DO [Primary Care Provider] - 1-2 days Patient Instructions/Handouts: Cellulitis (DC) Discharge Disposition: HOME SELF-CARE
== END 2018-06-24 14:19 | disposition home or self-care (01) | DRG 603 ==
LOC: EC 15:41 → 4MS4W 19:33
PROVIDERS: ADMIT Family Medicine; ATTEND Family Medicine
DX: L03.311 Cellulitis of abdominal wall (principal); F11.20 Opioid dependence, uncomplicated; Z68.41 Body mass index [BMI] 40.0-44.9, adult; E66.01 Morbid (severe) obesity due to excess calories; B18.2 Chronic viral hepatitis C; F17.200 Nicotine dependence, unspecified, uncomplicated; Q82.5 Congenital non-neoplastic nevus; G89.29 Other chronic pain; R21 Rash and other nonspecific skin eruption; Z79.899 Other long term (current) drug therapy; Z82.49 Family history of ischemic heart disease and other diseases of the circulatory system; Z80.8 Family history of malignant neoplasm of other organs or systems
CPT/HCPCS: 36415; 80048; 80053; 80202; 81003; 83605; 85025; 85027; 87040; 96365; 99284

== ENCOUNTER → 2018-08-01 | Outpatient (CLI) | payer MEDICAID ==
[2018-08-01 14:48] LABS: Basophils # (A) 0.1 k/uL (0-0.2); Basophils % (A) 1 %; Eosinophils # (A) 0.3 k/uL (0-0.7); Eosinophils % (A) 5 %; HGB 13.8 gm/dL (13.0-17.5); Lymphocytes # (A) 1.9 k/uL (1.0-4.8); Lymphocytes % (A) 29 %; MCH 28.3 pg (25.0-35.0); MCHC 34.5 g/dL (31.0-37.0); MCV 81.9 fL (80.0-100.0); Mean Platelet Volume 6.8; Monocytes # (A) 0.3 k/uL (0-1.0); Monocytes % (A) 5 %; Neutrophils # (A) 3.8 k/uL (1.3-7.7); Neutrophils % (A) 59 %; Platelet Count 218 k/uL (150-450); RBC 4.88 m/uL (4.30-5.90); RDW 13.1 % (11.5-15.5); WBC 6.5 k/uL (3.8-10.6)
[2018-08-01 22:25] LABS: ALT 24 U/L (10-49); AST 27 U/L (14-35); Albumin/Globulin Ratio 1.72 (1.60-3.17); Alkaline Phosphatase 81 U/L (41-126); Bilirubin, Conjugated <0.20 mg/dL (0.20-0.40); Globulin 2.5 g/dL (1.6-3.3); Total Bilirubin 0.4 mg/dL (0.3-1.2); Total Protein 6.8 g/dL (6.2-8.2)
[2018-08-02 15:41] LABS: Hepatits C Virus RNA DETECTED (Not detected); Hepatits C Virus RNA, Quant <12 IU/mL (<12); LOG HCV IU/mL <1.08 (<1.08)
== END | disposition home or self-care (01) ==
LOC: LABWHC1 12:35
PROVIDERS: ATTEND Physician Assistant
DX: B18.2 Chronic viral hepatitis C (principal)
CPT/HCPCS: 36415; 80076; 85025; 87522

== ENCOUNTER → 2019-01-02 | Outpatient (CLI) | payer MEDICAID ==
[2019-01-02 15:58] LABS: Basophils # (A) 0.1 k/uL (0-0.2); Basophils % (A) 1 %; Eosinophils # (A) 0.8 k/uL (0-0.7); Eosinophils % (A) 8 %; HCT 40.5 % (39.0-53.0); HGB 13.9 gm/dL (13.0-17.5); Lymphocytes # (A) 2.4 k/uL (1.0-4.8); Lymphocytes % (A) 26 %; MCH 28.4 pg (25.0-35.0); MCHC 34.3 g/dL (31.0-37.0); MCV 82.9 fL (80.0-100.0); Mean Platelet Volume 6.6; Monocytes # (A) 0.5 k/uL (0-1.0); Monocytes % (A) 5 %; Neutrophils # (A) 5.7 k/uL (1.3-7.7); Neutrophils % (A) 59 %; Platelet Count 276 k/uL (150-450); RBC 4.89 m/uL (4.30-5.90); RDW 14.6 % (11.5-15.5); WBC 9.6 k/uL (3.8-10.6)
[2019-01-02 23:16] LABS: ALT 22 U/L (10-49); AST 22 U/L (14-35); Albumin/Globulin Ratio 2.05 (1.60-3.17); Alkaline Phosphatase 84 U/L (41-126); Bilirubin, Conjugated <0.20 mg/dL (0.20-0.40); Globulin 2.1 g/dL (1.6-3.3); Total Bilirubin 0.2 mg/dL (0.2-1.2); Total Protein 6.4 g/dL (6.2-8.2)
== END | disposition home or self-care (01) ==
LOC: LABWHC1 14:12
PROVIDERS: ATTEND Physician Assistant
DX: B18.2 Chronic viral hepatitis C (principal)
CPT/HCPCS: 36415; 80076; 85025; 87522

== ENCOUNTER 2019-01-26 15:29 | Emergency (ER) | payer MEDICAID ==
[2019-01-26 15:34] VITALS: RESP 18
[2019-01-26 15:40] LABS: Glucose,Whole Blood 98 mg/dL (75-99)
[2019-01-26] MEDS ORDERED: ONDANSETRON 4 MG/2 ML VIAL IVP STA (16:17)
[2019-01-26] MEDS ORDERED: SODIUM CHLORIDE 0.9% 1,000 ML IV STA (16:17)
--- NOTE | 2019-01-26 16:27 | ED ---
General Adult HPI - General Chief complaint: Dizziness Stated complaint: sweating and not feeling well Time Seen by Provider: 01/26/19 15:43 Source: patient Mode of arrival: wheelchair Limitations: no limitations - History of Present Illness Initial comments: Patient presentes to the ED complaining of not feeling well for the past couple of hours or so. Patient states that he became lightheaded and diaphoretic while he was standing at work this afternoon. Patient states that he then became nauseated and vomited several times. Patient states that he ate a hotdog from a gas station at lunchtime, and he is concerned that it may be the etiology of his symptoms. Patient states that he is now feeling better. Denies having any pain, fever, headache, focal neuro deficit, chest pain, dyspnea, palpitations, syncope, abdominal pain, diarrhea, bloody or melanotic stool, hematemesis, urinary symptoms, or any other symptoms or complaints. - Related Data Home Medications Medication Instructions Recorded Confirmed Buprenorphine HCl/Naloxone HCl 1 mg SL BID 05/22/15 01/26/19 [Suboxone 8 mg-2 mg Sl Film] Dextroamphetamine/Amphetamine 30 mg PO BID 06/20/18 01/26/19 [Adderall] FLUoxetine HCL [PROzac] 20 mg PO HS 06/20/18 01/26/19 Losartan Potassium 50 mg PO HS 06/20/18 01/26/19 Allergies Allergy/AdvReac Type Severity Reaction Status Date / Time No Known Allergies Allergy Verified 01/26/19 15:47 Review of Systems ROS Statement: Those systems with pertinent positive or pertinent negative responses have been documented in the HPI. ROS Other: All systems not noted in ROS Statement are negative. Past Medical History Additional Past Medical History / Comment(s): hep c, history of etoh and drug use, clean for 8 years History of Any Multi-Drug Resistant Organisms: None Reported Past Surgical History: Adenoidectomy, Hernia Repair, Tonsillectomy Past Anesthesia/Blood Transfusion Reactions: No Reported Reaction Past Psychological History: No Psychological Hx Reported Smoking Status: Current some day smoker Past Alcohol Use History: None Reported Past Drug Use History: None Reported, Heroin, Opiates - Past Family History Father Family Medical History: Hypertension Additional Family Medical History / Comment(s): skin CA General Exam Limitations: no limitations General appearance: alert, in no apparent distress Head exam: Present: atraumatic, normocephalic Eye exam: Present: normal appearance, PERRL, EOMI ENT exam: Present: mucous membranes moist Neck exam: Absent: tenderness Respiratory exam: Present: normal lung sounds bilaterally. Absent: respiratory distress, wheezes, rales, rhonchi Cardiovascular Exam: Present: normal rhythm, bradycardia, normal heart sounds, other (Normal radial pulses bilaterally) GI/Abdominal exam: Present: soft, other (Obese abdomen). Absent: tenderness, guarding Extremities exam: Absent: tenderness, pedal edema, calf tenderness Neurological exam: Present: alert, oriented X3, CN II-XII intact. Absent: motor sensory deficit Psychiatric exam: Present: normal affect, normal mood Skin exam: Present: warm, dry, intact, normal color Course Vital Signs 01/26/19 01/26/19 01/26/19 15:32 16:51 19:24 Temperature 97.9 F 98 F Pulse Rate 62 71 63 Respiratory 18 18 18 Rate Blood Pressure 180/105 120/103 139/105 O2 Sat by Pulse 100 96 Oximetry - Reevaluation(s) Reevaluation #1: 01/26/19 19:31 Patient states that his symptoms have now resolved. Patient denies development of any new symptoms while in the ED. Patient remains alert and breathing comfortably. Patient is aware of his test results, and he feels comfortable going home at this time. Patient was instructed to return to the ER should he develop new or worsening symptoms. Patient was instructed to follow up closely with his PCP. EKG Findings - EKG Comments: EKG Findings:: Sinus bradycardia, normal CO and QRS intervals, normal QT interval, normal axis, no ST or T-wave abnormality Medical Decision Making - Medical Decision Making Patient's vital signs are reassuring. Patient's EKG and labs (including 2 negative troponins) are fairly unremarkable. I do not think that the patient's symptoms are from a cardiac or emergent medical condition. Will discharge patient home at this time. Return and follow-up instructions were clearly explained to the patient. Patient feels comfortable with this plan. - Lab Data Result diagrams: 01/26/19 16:03 01/26/19 16:03 Lab Results 01/26/19 01/26/19 01/26/19 Range/Units 15:37 16:03 16:03 WBC 10.4 (3.8-10.6) k/uL RBC 5.19 (4.30-5.90) m/uL Hgb 14.7 (13.0-17.5) gm/dL Hct 41.8 (39.0-53.0) % MCV 80.5 (80.0-100.0) fL MCH 28.2 (25.0-35.0) pg MCHC 35.1 (31.0-37.0) g/dL RDW 13.0 (11.5-15.5) % Plt Count 271 (150-450) k/uL Neutrophils % 71 % Lymphocytes % 18 % Monocytes % 5 % Eosinophils % 3 % Basophils % 1 % Neutrophils # 7.4 (1.3-7.7) k/uL Lymphocytes # 1.8 (1.0-4.8) k/uL Monocytes # 0.5 (0-1.0) k/uL Eosinophils # 0.3 (0-0.7) k/uL Basophils # 0.1 (0-0.2) k/uL Sodium 139 (137-145) mmol/L Potassium 3.9 (3.5-5.1) mmol/L Chloride 101 (98-107) mmol/L Carbon Dioxide 27 (22-30) mmol/L Anion Gap 11 mmol/L BUN 14 (9-20) mg/dL Creatinine 0.74 (0.66-1.25) mg/dL Est GFR (CKD-EPI)AfAm >90 (>60 ml/min/1.73 sqM) Est GFR (CKD-EPI)NonAf >90 (>60 ml/min/1.73 sqM) Glucose 100 H (74-99) mg/dL POC Glucose (mg/dL) 98 (75-99) mg/dL POC Glu Patient Coordinator ID Lilli Villar Calcium 9.5 (8.4-10.2) mg/dL Total Bilirubin 0.4 (0.2-1.3) mg/dL AST 27 (17-59) U/L ALT 25 (21-72) U/L Alkaline Phosphatase 83 (38-126) U/L Troponin I (0.000-0.034) ng/mL Total Protein 7.6 (6.3-8.2) g/dL Albumin 4.4 (3.5-5.0) g/dL Lipase 47 (23-300) U/L 01/26/19 01/26/19 Range/Units 16:03 18:23 WBC (3.8-10.6) k/uL RBC (4.30-5.90) m/uL Hgb (13.0-17.5) gm/dL Hct (39.0-53.0) % MCV (80.0-100.0) fL MCH (25.0-35.0) pg MCHC (31.0-37.0) g/dL RDW (11.5-15.5) % Plt Count (150-450) k/uL Neutrophils % % Lymphocytes % % Monocytes % % Eosinophils % % Basophils % % Neutrophils # (1.3-7.7) k/uL Lymphocytes # (1.0-4.8) k/uL Monocytes # (0-1.0) k/uL Eosinophils # (0-0.7) k/uL Basophils # (0-0.2) k/uL Sodium (137-145) mmol/L Potassium (3.5-5.1) mmol/L Chloride (98-107) mmol/L Carbon Dioxide (22-30) mmol/L Anion Gap mmol/L BUN (9-20) mg/dL Creatinine (0.66-1.25) mg/dL Est GFR (CKD-EPI)AfAm (>60 ml/min/1.73 sqM) Est GFR (CKD-EPI)NonAf (>60 ml/min/1.73 sqM) Glucose (74-99) mg/dL POC Glucose (mg/dL) (75-99) mg/dL POC Glu Patient Coordinator ID Calcium (8.4-10.2) mg/dL Total Bilirubin (0.2-1.3) mg/dL AST (17-59) U/L ALT (21-72) U/L Alkaline Phosphatase (38-126) U/L Troponin I <0.012 <0.012 (0.000-0.034) ng/mL Total Protein (6.3-8.2) g/dL Albumin (3.5-5.0) g/dL Lipase (23-300) U/L Disposition Clinical Impression: Vomiting, Dizziness, Diaphoresis Disposition: HOME SELF-CARE Condition: Stable Instructions (If sedation given, give patient instructions): Acute Nausea and Vomiting (ED), Dizziness (ED) Additional Instructions: Return to the ER immediately if you develop persistent vomiting, increased dizziness, fainting, any significant pain, a fever, or new or worsening symptoms. Follow up closely with your primary care provider. Is patient prescribed a controlled substance at d/c from ED?: No Referrals: Darian Mcgovern DO [Primary Care Provider] - 1-2 days Time of Disposition: 19:34
[2019-01-26 16:35] LABS: Basophils # (A) 0.1 k/uL (0-0.2); Basophils % (A) 1 %; Eosinophils # (A) 0.3 k/uL (0-0.7); Eosinophils % (A) 3 %; HCT 41.8 % (39.0-53.0); HGB 14.7 gm/dL (13.0-17.5); Lymphocytes # (A) 1.8 k/uL (1.0-4.8); Lymphocytes % (A) 18 %; MCH 28.2 pg (25.0-35.0); MCHC 35.1 g/dL (31.0-37.0); MCV 80.5 fL (80.0-100.0); Mean Platelet Volume 6.5; Monocytes # (A) 0.5 k/uL (0-1.0); Monocytes % (A) 5 %; Neutrophils # (A) 7.4 k/uL (1.3-7.7); Neutrophils % (A) 71 %; Platelet Count 271 k/uL (150-450); RBC 5.19 m/uL (4.30-5.90); WBC 10.4 k/uL (3.8-10.6)
[2019-01-26 17:00] LABS: ALT 25 U/L (21-72); AST 27 U/L (17-59); African American GFR (CKD) >90 (>60 ml/min/1.73 sqM); Albumin 4.4 g/dL (3.5-5.0); Alkaline Phosphatase 83 U/L (38-126); Anion Gap 11 mmol/L; Blood Urea Nitrogen 14 mg/dL (9-20); Calcium 9.5 mg/dL (8.4-10.2); Carbon Dioxide 27 mmol/L (22-30); Chloride 101 mmol/L (98-107); Glucose 100 mg/dL (74-99); Potassium 3.9 mmol/L (3.5-5.1); Sodium 139 mmol/L (137-145); Total Bilirubin 0.4 mg/dL (0.2-1.3); Total Protein 7.6 g/dL (6.3-8.2)
[2019-01-26 19:27] VITALS: BP 139/105; PULSE 63; TEMP 98
== END 2019-01-26 19:46 | disposition home or self-care (01) ==
LOC: EC 15:29
DX: R42 Dizziness and giddiness (principal); R11.10 Vomiting, unspecified; R61 Generalized hyperhidrosis; F17.200 Nicotine dependence, unspecified, uncomplicated; Z79.899 Other long term (current) drug therapy
CPT/HCPCS: 36415; 93005; 80053; 83690; 84484; 85025; 99284; 96374; 96361 ×3; J2405

== ENCOUNTER → 2019-03-21 | Outpatient (CLI) | payer MEDICAID ==
--- NOTE | 2019-03-21 15:15 | CONS ---
CONSULTATION DATE OF SERVICE: 03/15/2019 A 38-year-old gentleman who presented to the [facility] for possible obstructive sleep apnea-hypopnea syndrome. HISTORY OF PRESENT ILLNESS/SLEEP-WAKE EVALUATION: Patient's days goal from midnight until 9 a.m. He does have problems with falling asleep, has TV set in bedroom. He sleeps on the back position with loud snoring and witnessed episodes of stopped breathing during sleep. The patient wakes up from sleep around 3 times with dry mouth, gasping for air, episodes of heartburn and sweating and nocturia. In the morning, patient wakes up tired, has difficulties to pay attention, memory, concentration, depression and anxiety. [place] Sleepiness Scale significantly increased to 12. Usually patient does not take any naps, but if he does, he may see with dreams during naps. Positive history of hypnagogic hallucinations. No history of sleep paralysis or cataplexy. Patient wakes up from sleep with headaches. PAST MEDICAL HISTORY: Positive for hypertension, ADHD, episodes of headaches, depression. Hemangiomas of the skin of the right side of the belly. PAST SURGICAL HISTORY: Right-sided inguinal hernia surgery, surgery for salivary gland stone removed. MEDICATIONS: Losartan, Prozac, Suboxone, Inderal. SOCIAL HISTORY: Positive for smoking for about 20 years from 1 pack a day to about a half pack a day at the present time, trying to quit smoking. Alcohol consumption none for last 7 years. FAMILY HISTORY: Hypertension, sleep apnea, cancer, mental illness. REVIEW OF SYSTEMS: Multiple awakenings from sleep, tiredness and sleepiness during the day. Difficulties to concentrate, problem with the memory. PHYSICAL EXAM: gentleman without distress, BP 135/90, HR 80, RR 16, height 6 foot, 1/2 inch, weight 341.2 pounds, body mass index 44.9, temperature 98.3, oxygen saturation at room air 96%. OROPHARYNX: Low position of soft palate, Mallampati 3. Some restriction of nasal breathing. Wide neck 18-3/4 inches in circumference. ABDOMEN: Slightly obese. Hemangiomas on the right side of the belly. NECK: Supple, no JVD. Thyroid is not palpable. LUNGS: Clear to percussion and to auscultation. Good air exchange. No wheezing or rhonchi. HEART: S1, S2 regular. No murmurs, gallops, or rubs. EXTREMITIES: No clubbing or cyanosis. DATA WAREHOUSING MANAGER: Awake, alert, and oriented X3. Cranial nerves 2 to 7 intact. There is no fasciculation or atrophy. noted. No focal deficits observed. IMPRESSION: 1. Loud snoring, witnessed episodes of stopped breathing during sleep, low position of soft palate, Mallampati 3, wide neck, sleepiness, multiple awakenings from sleep, obstructive sleep apnea-hypopnea syndrome. 2. Obesity, body mass index of 44.9. 3. Hypertension. 4. History of ADHD. 5. History of depression. 6. Status post surgical treatment of the inguinal hernia on the right side. 7. Status post stone removal removed from salivary gland. 8. Hemangiomas on the right side of the belly. PLAN: 1. Polysomnography for evaluation of patient's breathing during sleep. 2. CPAP/BiPAP titration if sleep study confirms obstructive sleep apnea-hypopnea syndrome. 3. Preferable position during sleep on the side. 4. No driving if patient feels any sleepiness. 5. I will see patient for follow up visit to explain results of testing and following plan. Thank you very much for referring this patient for consultation. Sincerely, Zan Flores MD, PhD, FAASM Diplomat of [employer] Regulator [employer] In[facility] [place] MMODL / DONNA: [id number] /
== END | disposition home or self-care (01) ==
LOC: SLEEP 13:06
PROVIDERS: ATTEND Internal Medicine
DX: R06.83 Snoring (principal); E66.9 Obesity, unspecified; Z68.41 Body mass index [BMI] 40.0-44.9, adult; I10 Essential (primary) hypertension; D18.03 Hemangioma of intra-abdominal structures; R12 Heartburn; R35.1 Nocturia; F41.9 Anxiety disorder, unspecified; F32.9 Major depressive disorder, single episode, unspecified; Z87.898 Personal history of other specified conditions; Z98.890 Other specified postprocedural states; Z86.59 Personal history of other mental and behavioral disorders; Z87.891 Personal history of nicotine dependence; Z79.899 Other long term (current) drug therapy
CPT/HCPCS: 99211

== ENCOUNTER → 2019-10-16 | Outpatient (CLI) | payer MEDICAID ==
--- NOTE | 2019-10-17 07:32 | ECHOF ---
Referral Reason:I10 htn MEASUREMENTS -------- HEIGHT: 182.9 cm WEIGHT: 158.8 kg BP: RVIDd: 3.6 cm (< 3.3) IVSd: 1.2 cm (0.6 - 1.1) LVIDd: 4.0 cm (3.9 - 5.3) LVPWd: 1.2 cm (0.6 - 1.1) IVSs: 2.5 cm LVIDs: 2.1 cm LVPWs: 2.2 cm LAESV Index (A-L): 23.89 ml/m Ao Diam: 2.9 cm (2.0 - 3.7) AV Cusp: 1.9 cm (1.5 - 2.6) LA Diam: 3.1 cm (2.7 - 3.8) MV EXCURSION: 18.395 mm (> 18.000) MV EF SLOPE: 144 mm/s (70 - 150) EPSS: 0.3 cm MV E Radames: 0.99 m/s MV DecT: 236 ms MV A Radames: 0.79 m/s MV E/A Ratio: 1.25 RAP: 5.00 mmHg RVSP: 17.86 mmHg FINDINGS -------- Sinus rhythm. This was a technically adequate study. The left ventricular size is normal. There is mild concentric left ventricular hypertrophy. Overa ll left ventricular systolic function is normal with, an EF between 55 - 60 %. The diastolic fillin g pattern is normal for the age of the patient 8.69. The right ventricle is mildly enlarged. The left atrial size is normal. Normal LA size by volume 22+/-6 ml/m2. The right atrial size is normal. The aortic valve is trileaflet and appears structurally normal. The mitral valve is normal. There is trace mitral regurgitation. The tricuspid valve appears structurally normal. Mild tricuspid regurgitation present. Right vent ricular systolic pressure is normal at < 35 mmHg. There is no pulmonic regurgitation present. The aortic root size is normal. Normal inferior vena cava with normal inspiratory collapse consistent with estimated right atrial pre ssure of 5 mmHg. There is no pericardial effusion. CONCLUSIONS -------- 1. Sinus rhythm. 2. This was a technically adequate study. 3. The left ventricular size is normal. 4. There is mild concentric left ventricular hypertrophy. 5. Overall left ventricular systolic function is normal with, an EF between 55 - 60 %. 6. The diastolic filling pattern is normal for the age of the patient 8.69 7. The right ventricle is mildly enlarged. 8. The left atrial size is normal. 9. Normal LA size by volume 22+/-6 ml/m2. 10. The right atrial size is normal. 11. The aortic valve is trileaflet and appears structurally normal. 12. The mitral valve is normal. 13. There is trace mitral regurgitation. 14. The tricuspid valve appears structurally normal. 15. Mild tricuspid regurgitation present. 16. Right ventricular systolic pressure is normal at < 35 mmHg. 17. There is no pulmonic regurgitation present. 18. The aortic root size is normal. 19. Normal inferior vena cava with normal inspiratory collapse consistent with estimated right atrial pressure of 5 mmHg. 20. There is no pericardial effusion. MANUFACTURING FINANCE MANAGER: Rebeca Kyle RDCS
== END | disposition home or self-care (01) ==
LOC: RADECHMAIN 11:22
PROVIDERS: ATTEND Family Medicine
DX: I07.1 Rheumatic tricuspid insufficiency (principal); I10 Essential (primary) hypertension
CPT/HCPCS: 93306

== ENCOUNTER → 2021-08-27 | Outpatient (CLI) | payer MEDICAID ==
--- NOTE | 2021-08-27 15:09 | MR ---
MR femur and right thigh HISTORY: D 18.0 Multiplanar multisequence imaging obtained through the right femur region possibly Exam was aborted prior to completing exam being performed. Multiplanar multisequence imaging obtained through the area of patient's symptomatology in the region of the proximal right femur No comparisons There is heterogeneous signal present within the subcutaneous fat over the right inguinal region, low er aspect of the anterior abdominal wall which is partially visualized, heterogeneous signal extends to the level of the scrotum. There is normal appearance of the muscle and visualized right femur. No evident cortical destruction. Bone marrow signal is maintained. Incidental note is made of hydroceles within the scrotum, skin thickening is also present at the leve l of the scrotum. Correlate to exclude cellulitis. IMPRESSION: Findings consistent with diffuse vascular malformation involving the subcutaneous fat of a partially visualized.
== END | disposition home or self-care (01) ==
LOC: RADMRIMAIN 11:35
PROVIDERS: ATTEND Surgery
DX: D18.01 Hemangioma of skin and subcutaneous tissue (principal)

== ENCOUNTER → 2021-08-30 | Outpatient (CLI) | payer MEDICAID ==
--- NOTE | 2021-08-31 02:15 | MR ---
EXAMINATION TYPE: MR pelvis wo/w con DATE OF EXAM: 08/30/2021 COMPARISON: MR scan for 2922 HISTORY: Hemangioma of skin and subcutaneous tissue. CONTRAST: Standard multiplanar, multisequence MRI departmental protocol images were obtained without contrast a nd with 15 mL intravenous Gadavist gadolinium contrast. Exam limited by patient size. There are numerous small vessels in the subcutaneous fat over the anter ior right side of the mid and lower abdomen. This extends inferiorly to the pubis. Area of increased vascularity appears to measure approximately 33 x 12 cm. The superior extent is not well defined. Pat ient was too large to completely image the anterior and lateral extent. The abnormal vascularity appe ars to be in 2 separate regions in the pubic region on the right side and also in the right lateral a nd anterior abdomen. The bladder distends smoothly. No free fluid in the pelvis. No evidence of a pelvic mass. Bony pelvis appears intact. No evidence of abdominal wall hernia. There appears to be a lipoma of the right late ral mid abdomen within the abdominal wall musculature. This has thickness of 3.5 cm. No significant p athologic enhancement seen. The hip joints are intact. No evidence of hip dysplasia. No sign of avasc ular necrosis. IMPRESSION: 2 large areas of vascular malformation in the subcutaneous fat in the right pubic region and also rig ht anterior and lateral abdominal wall. Lipoma of the right anterior lateral abdominal wall. No enhancement seen to suggest an inflammatory process. This subcutaneous increased vascularity is also present on the old CT scan of 08/02/2011 and not change d in distribution. Obesity appears significantly increased compared to old exam.
== END | disposition home or self-care (01) ==
LOC: RADMRIMAIN 20:30
PROVIDERS: ATTEND Surgery
DX: E66.9 Obesity, unspecified (principal); D17.5 Benign lipomatous neoplasm of intra-abdominal organs
CPT/HCPCS: 72197; A9585

== ENCOUNTER → 2021-09-03 | Outpatient (CLI) | payer MEDICAID ==
--- NOTE | 2021-09-04 02:35 | MR ---
EXAMINATION TYPE: MR Angio Run off w/con DATE OF EXAM: 09/03/2021 COMPARISON: HISTORY: Hemangioma of skin and subcutaneous tissue, rt side of abdomen. CONTRAST: Standard multiplanar, multisequence MRI departmental protocol images were obtained without contrast a nd with 15 mL intravenous Gadavist gadolinium contrast. MR angiographic images were obtained of the abdominal aorta and arteries of both legs. There are Thre e-D postprocessed images. Abdominal aorta has normal size and contour. No aneurysm. No sign of dissection. There is arterial fl ow in the common internal and external iliac arteries bilaterally. There is arterial flow in both fem oral arteries. There is arterial flow in the profunda femoris arteries bilaterally. There is arterial flow in the popliteal and tibial arteries and tibial artery trifurcations bilaterally. No evidence o f arterial aneurysm or dissection. No evidence of hemodynamic stenosis. No pathologic enhancement. Ki dneys have normal size and contour. IMPRESSION: Negative MR angiogram of the abdominal aorta with runoffs.
== END | disposition home or self-care (01) ==
LOC: RADMRIMAIN 20:18
PROVIDERS: ATTEND Surgery
DX: D18.01 Hemangioma of skin and subcutaneous tissue (principal)
CPT/HCPCS: 74185; 73725; A9585

== ENCOUNTER → 2021-09-06 | Outpatient (CLI) | payer MEDICAID ==
--- NOTE | 2021-09-07 11:10 | MR ---
EXAMINATION TYPE: MR abdomen wo/w con DATE OF EXAM: 09/06/2021 COMPARISON: CT abdomen and pelvis August 01, 2021. MRI pelvis August 30, 2021 HISTORY: Hemangioma of skin and subcutaneous tissue, rt side of abdomen CONTRAST: Standard multiplanar, multisequence MRI departmental protocol images were obtained without contrast a nd with 15 mL intravenous Gadavist gadolinium contrast. FINDINGS: Suboptimal due to large body habitus. Lung bases are grossly clear. There is dependent 9 mm gallstone in gallbladder axial image 48. No surrounding inflammatory change. Diffuse signal dropout in the liver consistent with diffuse fatty infiltration. Liver is normal in size. No ductal dilatatio n is seen. There are multiple T2 hyperintense lesions scattered throughout the spleen which is redemo nstrated enlarged measuring 17.7 cm long axis axial image 50 series 801. Majority of lesions favor be nign thin-walled cyst. Pancreas normal in size. No adrenal masses. No solid or cystic masses in eithe r kidney. No hydronephrosis. No suspicious small or large bowel dilatation. No intra-abdominal ascites. No abnormal adenopathy. No AAA. Prominent vessels in the right lateral subcutaneous fat are not completely imaged on this study , were present on [address] CT. IMPRESSION: 1. Prominent vessels and/or vascular anomaly in the right abdominal subcutaneous fat are only partial ly imaged. No suspicious mass or vascular anomaly within the abdomen.
== END | disposition home or self-care (01) ==
LOC: RADMRIMAIN 20:26
PROVIDERS: ATTEND Surgery
DX: D18.01 Hemangioma of skin and subcutaneous tissue (principal)
CPT/HCPCS: 74183; A9585

== ENCOUNTER → 2021-10-13 | Outpatient (CLI) | payer MEDICAID ==
--- NOTE | 2021-10-13 16:00 | P.PN ---
Subjective DATE: 10/13/2021 FOLLOW UP VISIT. Patient with obstructive sleep apnea hypopnea syndrome return to sleep center for follow-up visit. Patient is using PAP equipment every night for the whole night, getting PAP supplies in time. The patient does not have significant problems with the mask, PAP unit and humidification. [place] sleepiness scale is 4. I checked information from PAP unit. PAP unit pressure 15 cm H2O. Usage is 100 % for more then 4 hours, average 6 hours hours per night. Leak is 54.4 l/m, which is in high range. Apnea Hypopnea Index is 2.8, which is normal. MEDICATIONS:1. Losartan 50 mg once a day 2. Suboxone 8 mg twice a day 3. Prozac 4. Lasix 20 mg once a day 5. Adderall 30 mg twice a day During physical exam: GENERAL: A pleasant patient without any distress. VITAL SIGNS: BP 128/86, HR 88, RR 18, weight 407, temperature 97.2, oxygen saturation at room air and T4. HEENT: PERRLA, EOMI.low position of soft palate, Mallapati 3-4. NECK: Supple. No JVD. LUNGS: Clear to percussion and to auscultation. Good air exchange. No wheezing or rhonchi. HEART: S1, S2 regular. ABDOMEN: Soft and nontender. Obese EXTREMITIES: No clubbing or cyanosis. HYDROTHERAPIST: Awake, alert, and oriented x3. No focal deficit. Impressions: 1. Obstructive sleep apnea-hypopnea syndrome. Patient demonstrated great compliance with treatment, benefiting from treatment. 2. Obesity. 3. Hypertension. 4. History of ADH D. 5. History of depression. 6. Status post surgical treatment for inguinal hernia. 7. Status post stone removed from salivary gland. 8. Hemangiomas on the right side of the belly. Plan: 1. Continue using PAP equipment every night for the whole night. 2. To change air filter at least 1-2 times per month. 3. PAP unit should stay lower then position of the head. 4. Advised patient to remove all remaining water from humidifier canister daily and make it dry after each usage. Refill canister with fresh distilled water before each usage. 5. Sleep hygiene with regular time in bed for at least 8 hours. 6. Precautions related to driving. No driving if feel any sleepiness. 7. I will maintain prescription for PAP supplies including mask, tube, filters. 8. Follow up visit in 6 months or earlier if patient has any problems. 9. Watching weight. Thank you very much for allowing me to participate in the management of your patient. Zan Flores MD, PhD, FAASM. Diplomat of [place] [employer], Sleep Medicine Board by [place] [employer] Epic Manager of [facility] [place]
== END ==
LOC: SLEEP 15:03
PROVIDERS: ATTEND Internal Medicine
DX: G47.33 Obstructive sleep apnea (adult) (pediatric) (principal); E66.9 Obesity, unspecified; I10 Essential (primary) hypertension; F32.A Depression, unspecified; Z79.899 Other long term (current) drug therapy; F90.9 Attention-deficit hyperactivity disorder, unspecified type; D18.01 Hemangioma of skin and subcutaneous tissue; Z98.890 Other specified postprocedural states; Z99.89 Dependence on other enabling machines and devices; F17.200 Nicotine dependence, unspecified, uncomplicated

== ENCOUNTER → 2022-01-17 | Outpatient (CLI) | payer MEDICAID | END | disposition home or self-care (01) | LOC: LABWHC1 14:24 | PROVIDERS: ATTEND Family Medicine | DX: F11.20 Opioid dependence, uncomplicated (principal) | CPT/HCPCS: 80362 ==

== ENCOUNTER → 2022-02-01 | Outpatient (CLI) | payer MEDICAID | END | disposition home or self-care (01) | LOC: LABWHC1 15:39 | PROVIDERS: ATTEND Internal Medicine | DX: Z86.19 Personal history of other infectious and parasitic diseases (principal); R76.8 Other specified abnormal immunological findings in serum | CPT/HCPCS: 36415; 87522 ==

== ENCOUNTER 2022-12-13 10:16 | Day surgery (SDC) | payer MEDICAID ==
[2022-07-29 14:29] VITALS: BMI 54.1
[2022-08-30 15:58] LABS: Basophils % (A) 1 %; Eosinophils # (A) 0.3 k/uL (0-0.7); Eosinophils % (A) 5 %; HCT 40.7 % (39.0-53.0); HGB 13.9 gm/dL (13.0-17.5); Lymphocytes # (A) 1.3 k/uL (1.0-4.8); Lymphocytes % (A) 21 %; MCH 26.4 pg (25.0-35.0); MCHC 34.1 g/dL (31.0-37.0); MCV 77.4 fL (80.0-100.0); Monocytes # (A) 0.3 k/uL (0-1.0); Monocytes % (A) 5 %; Neutrophils # (A) 4.2 k/uL (1.3-7.7); Neutrophils % (A) 67 %; Platelet Count 278 k/uL (150-450); RBC 5.26 m/uL (4.30-5.90); WBC 6.2 k/uL (3.8-10.6)
[2022-08-30 16:05] LABS: ALT 42 U/L (4-49); AST 34 U/L (17-59); African American GFR (CKD) >90 (>60 ml/min/1.73 sqM); Alkaline Phosphatase 83 U/L (38-126); Anion Gap 8 mmol/L; Blood Urea Nitrogen 13 mg/dL (9-20); Calcium 8.3 mg/dL (8.4-10.2); Carbon Dioxide 32 mmol/L (22-30); Chloride 98 mmol/L (98-107); Glucose 99 mg/dL (74-99); Non-African American GFR(CKD) >90 (>60 ml/min/1.73 sqM); Potassium 4.1 mmol/L (3.5-5.1); Sodium 138 mmol/L (137-145); Total Bilirubin 0.4 mg/dL (0.2-1.3); Total Protein 7.1 g/dL (6.3-8.2)
[2022-12-13] MEDS ORDERED: LIDOCAINE 1% (10MG/ML) FOR IV START INTRADERMA PRN (10:39)
[2022-12-13] MEDS ORDERED: LACTATED RINGERS 1,000 ML IV SCH (10:39)
[2022-12-13 11:14] VITALS: TEMP 97.2
[2022-12-13] MEDS ORDERED: PROPOFOL 10 MG/ML 20 ML VIAL IV ONE (11:18)
[2022-12-13] MEDS ORDERED: LIDOCAINE 2% INJ 20 MG/ML (2 ML VIAL) ONE (11:18)
--- NOTE | 2022-12-13 11:19 | P.GSHP ---
History of Present Illness H&P Date: 12/13/22 Chief Complaint: Family history of colon cancer 42-year-old male here for colonoscopy. He has not had one previously. No bowel complaints. Family history of colon cancer in both grandparents. Past Medical History Past Medical History: GERD/Reflux, Hypertension, Liver Disease, Sleep Apnea/CPAP/BIPAP Additional Past Medical History / Comment(s): Family hx of colon ca. Hx. 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 JESSICA with Cpap. History of Any Multi-Drug Resistant Organisms: None Reported Past Surgical History: Adenoidectomy, Hernia Repair, Tonsillectomy Additional Past Surgical History / Comment(s): Salivary stones removed Past Anesthesia/Blood Transfusion Reactions: No Reported Reaction Smoking Status: Former smoker, Vaper - Past Family History Father Family Medical History: Cancer, Hypertension Additional Family Medical History / Comment(s): Colon & skin. Medications and Allergies Home Medications Medication Instructions Recorded Confirmed Type Buprenorphine HCl/Naloxone HCl 1 mg SL QAM 05/22/15 12/13/22 History [Suboxone 8 mg-2 mg Sl Film] Dextroamphetamine/Amphetamine 30 mg PO BID 06/20/18 12/13/22 History [Adderall] FLUoxetine HCL [PROzac] 20 mg PO HS 06/20/18 12/13/22 History Losartan Potassium 50 mg PO HS 06/20/18 12/13/22 History Furosemide [Lasix] 40 mg PO QAM 07/29/22 12/13/22 History Multivitamins, Thera [Multivitamin 1 tab PO QAM 12/07/22 12/13/22 History (formulary)] Potassium Chloride 10 mg PO QAM 12/07/22 12/13/22 History Sulfamethox-Tmp 800-160Mg [Bactrim 1 tab PO MOWEFR 12/07/22 12/13/22 History DS 800-160 mg] Allergies Allergy/AdvReac Type Severity Reaction Status Date / Time No Known Allergies Allergy Verified 12/13/22 10:39 Surgical - Exam Vital Signs Temp Pulse Resp BP Pulse Ox 97.2 F L 85 16 146/90 94 L 12/13/22 11:13 12/13/22 11:13 12/13/22 11:13 12/13/22 11:13 12/13/22 11:13 Physical exam: General: Well-developed, well-nourished HEENT: Normocephalic, sclerae nonicteric Abdomen: Nontender, nondistended Extremities: No edema Neuro: Alert and oriented Results - Labs 08/30/22 15:14 08/30/22 15:14 Assessment and Plan (1) Colon cancer screening Narrative/Plan: Will proceed with colonoscopy at this time. Current Visit: Yes Status: Acute Code(s): Z12.11 - ENCOUNTER FOR SCREENING FOR MALIGNANT NEOPLASM OF COLON SNOMED Code(s): 252172088
--- NOTE | 2022-12-13 11:31 | P.PCN ---
Date of Procedure: 12/13/22 Procedure(s) Performed: PREOPERATIVE DIAGNOSIS: Colon cancer screening, family history of colon cancer POSTOPERATIVE DIAGNOSIS: Normal exam PROCEDURE: Colonoscopy ANESTHESIA: MAC SURGEON: Edgardo Metzger M.D. SPECIMENS: None ENDOSCOPIC PROCEDURE: The patient was placed on the endoscopy table in the left decubitus position. The Olympus colonoscope was inserted into the anus and passed under direct visualization to the base of the cecum. The appendiceal orifice was visualized. From that point the scope was slowly withdrawn inspecting all surfaces carefully. There were no neoplastic inflammatory or polypoid lesions throughout the cecum, ascending, transverse, descending, sigmoid and rectum. There was no visible diverticulosis noted. Digital rectal examination was normal. The patient was taken to the recovery room in stable condition per anesthesia guidelines. RECOMMENDATIONS: Resume diet. Repeat colonoscopy in 5-7 years
[2022-12-13 12:05] VITALS: BP 146/78; PULSE 77; RESP 20
== END 2022-12-13 12:05 | disposition home or self-care (01) ==
LOC: ORWHC2ENDO 10:16
PROVIDERS: ATTEND Surgery
DX: Z12.11 Encounter for screening for malignant neoplasm of colon (principal); I10 Essential (primary) hypertension; K21.9 Gastro-esophageal reflux disease without esophagitis; G47.33 Obstructive sleep apnea (adult) (pediatric); Z90.89 Acquired absence of other organs; Z90.49 Acquired absence of other specified parts of digestive tract; Z87.891 Personal history of nicotine dependence; Z82.49 Family history of ischemic heart disease and other diseases of the circulatory system; Z79.899 Other long term (current) drug therapy; Z80.0 Family history of malignant neoplasm of digestive organs
CPT/HCPCS: 45378; J2704; J2001; 80053; 80195; 84478; 85025

== ENCOUNTER → 2023-12-14 | Outpatient (CLI) | payer MEDICAID | END | disposition home or self-care (01) | LOC: LABPRL 16:10 | PROVIDERS: ATTEND Family Medicine | DX: I89.0 Lymphedema, not elsewhere classified (principal) | CPT/HCPCS: 82565; 84520 ==

== ENCOUNTER → 2024-06-24 | Outpatient (CLI) | payer MEDICAID ==
--- NOTE | 2024-06-24 16:03 | NM ---
EXAMINATION TYPE: NM hepatobiliary w EF DATE OF EXAM: 06/24/2024 COMPARISON: NONE INDICATION: Gastroparesis TECHNIQUE: After the intravenous administration of 4.46 mCi Tc 99m Mebrofenin hepatobiliary scintigra phy is performed. Images were obtained immediately post injection. FINDINGS: There is prompt uptake and excretion of radiotracer by the liver. Extrahepatic ducts are identified at 4 minutes. The gallbladder is visualized within 4 minutes. Small bowel activity is noted with ejection fraction. At one hour 8 ounces of oral ensure plus is given to mimic CCK and gallbladder ejection fraction is c alculated at 93 %, which is elevated. (Normal >35% and <80%.). IMPRESSION: 1. Correlate for biliary hyperkinesia. [facility], , 06/24/2024 4:01 PM
== END | disposition home or self-care (01) ==
LOC: RADNMMAIN 13:19
PROVIDERS: ATTEND Family Medicine
DX: K31.84 Gastroparesis (principal)
CPT/HCPCS: 78226; A9537